=== PATIENT | male | born 1995 | race Caucasian/White ===

== ENCOUNTER 2024-09-15 00:15 | Emergency (ER) | payer SELFPAY ==
[~2024-09-15] VITALS: Ht 170.2 cm; Wt 82.0 kg
[2024-09-15 00:17] VITALS: BP 138/74; PULSE 102; RESP 16; TEMP 36.9; O2SAT 98
[2024-09-15] MEDS: LIDOCAINE HCL/PF 1% 10 MG/ML 5ML VIAL INFIL ONE (05:00)
[2024-09-15] MEDS: TETANUS, DIPHTHERIA, PERTUSSIS VAC/PF 0.5ML (>10YR OLD) IM ONE (05:12)
== END 2024-09-15 06:17 | disposition home or self-care (01) ==
LOC: ER 00:15
DX: S01.81XA Laceration without foreign body of other part of head, initial encounter (principal); W22.09XA Striking against other stationary object, initial encounter; Y93.01 Activity, walking, marching and hiking; Y92.89 Other specified places as the place of occurrence of the external cause; Y99.8 Other external cause status
CPT/HCPCS: 99285; 70450; 90715; 12013; 90471; J2003